=== PATIENT | female | born 1960 | race Caucasian/White ===

== ENCOUNTER 2016-06-19 09:40 | Outpatient (CLI) | payer MEDICAID | END 2016-06-19 23:59 | DX: M25.50 Pain in unspecified joint (principal); Z13.29 Encounter for screening for other suspected endocrine disorder ==

== ENCOUNTER 2016-10-08 11:44 | Outpatient (CLI) | payer MEDICAID ==
--- NOTE | 2016-10-08 12:58 | Mammography Report ---
DIGITAL DIAGNOSTIC BILATERAL MAMMOGRAM: 10/08/2016 CLINICAL HISTORY: Patient has right breast tenderness. Patient has no family history of breast canc er. Patient has had no breast surgeries. COMPARISON: None. TECHNIQUE: Craniocaudad and oblique lateral views of each breast were obtained with [facility] Full Fie ld digital mammography. A mediolateral view of the right breast was also done to compliment the stud y. FINDINGS: Breast parenchyma consists almost entirely of fat. No significant clusters of calcificati on are seen. No significant masses are noted. Present mammogram is negative. Patient does have right breast tenderness. Occasionally breast tende rness can indicate a significant abnormality even when a palpable mass is not present. Because of th is, recommend a right breast ultrasound to compliment the present study. Ultrasound can show abnorma lities that are not demonstrable on mammography. IMPRESSION: BIRADS CATEGORY 0 - INCOMPLETE. NEEDS ADDITIONAL IMAGING EVALUATION. RIGHT BREAST ULTR ASOUND FOR REASONS DISCUSSED ABOVE. PATIENT HAS ALREADY BEEN PLACED ON OUR SCHEDULE FOR RIGHT ROSELYN AST ULTRASOUND TO BE DONE 10/09/2016 AT 2:45 P.M. STANDARD QUALIFYING STATEMENTS 1. This examination was reviewed with the aid of Computer-Aided Detection (CAD). 2. A negative or benign imaging report should not delay biopsy if clinically suspicious findings are present. Consider surgical consultation if warranted. More than 5% of cancers are not identified by chucho caruso. 3. Dense breasts may obscure an underlying neoplasm. JOB #: [id number] EXT JOB #:
== END 2016-10-08 11:45 | disposition home or self-care (01) ==
LOC: DI 11:44
PROVIDERS: ATTEND Nurse Practitioner Family
DX: N64.4 Mastodynia (principal)
CPT/HCPCS: 77066

== ENCOUNTER 2016-10-09 14:18 | Outpatient (CLI) | payer MEDICAID ==
--- NOTE | 2016-10-10 09:42 | Ultrasound Report ---
RIGHT BREAST ULTRASOUND: 10/09/2016 CLINICAL HISTORY: A 55-year-old female with right breast pain and negative mammogram yesterday. Janeth jansen returns today for a right breast ultrasound for further evaluation. TECHNIQUE: Real-time scanning was performed with risk control field representative static images obtained. FINDINGS: Right breast ultrasound shows no significant abnormality in the area of patient's pain in the outer half of the right breast. IMPRESSION: NEGATIVE RIGHT BREAST ULTRASOUND. BIRADS CATEGORY 1 - NEGATIVE. RECOMMENDATIONS: Annual bilateral screening mammography. JOB #: [id number] EXT JOB #:[id number]
== END 2016-10-09 14:19 | disposition home or self-care (01) ==
LOC: DI 14:18
PROVIDERS: ATTEND Nurse Practitioner Family
DX: N64.4 Mastodynia (principal)
CPT/HCPCS: 76642

== ENCOUNTER 2017-02-10 15:19 | Outpatient (CLI) | payer MEDICAID ==
--- NOTE | 2017-02-11 10:31 | XRAY Report ---
TWO-VIEW BILATERAL SHOULDERS: 02/10/2017 CLINICAL INDICATION: Pain. FINDINGS: Frontal and scapular Y views of the bilateral shoulders demonstrate mild osteoarthritis of the glenohumeral joints. No radiopaque foreign body is seen in the soft tissues. IMPRESSION: MILD GLENOHUMERAL OSTEOARTHRITIS. JOB #: [id number] EXT JOB #:[id number]
== END 2017-02-10 15:20 | disposition home or self-care (01) ==
LOC: DI.S 15:19
PROVIDERS: ATTEND Nurse Practitioner Family
DX: M19.011 Primary osteoarthritis, right shoulder (principal); M19.012 Primary osteoarthritis, left shoulder

== ENCOUNTER 2018-05-14 10:12 | Outpatient (CLI) | payer MEDICAID ==
[2018-05-14 18:16] LABS: % IRON SATURATION 36 % (20-50); ALBUMIN/GLOBULIN RATIO 1.1 (1.0-2.2); ALKALINE PHOSPHATASE 43 IU/L (42-121); ALT ALANINE AMINOTRANSFERASE 19 IU/L (10-60); AST ASPARTATE AMINOTRANSFERASE 29 IU/L (10-42); BILIRUBIN,TOTAL 1.1 mg/dL (0.2-1.0); BUN - BLOOD UREA NITROGEN 15 mg/dL (6-20); CALCIUM 9.2 mg/dL (8.5-10.3); CARBON DIOXIDE - CO2 27 mmol/L (21-32); CHLORIDE 106 mmol/L (101-111); CHOL/HDL RATIO 2.1 (<4.4); CHOLESTEROL 213 mg/dL; CREATININE 0.6 mg/dL (0.4-1.0); GFR - MDRD 103 (>89); GLUCOSE 99 mg/dL (70-100); HDL CHOLESTEROL 100 mg/dL; IRON 130 ug/dL (28-170); LDL CHOLESTEROL,CALCULATED 100 mg/dL; SODIUM 144 mmol/L (135-145); TOTAL IRON BINDING CAPACITY 364 ug/dL (250-450); TOTAL PROTEIN 7.5 g/dL (6.7-8.2); TRANSFERRIN 260 mg/dL (192-382); VLDL CHOLESTEROL 13 mg/dL
[2018-05-14 18:24] LABS: THYROID STIMULATING HORMONE 1.59 uIU/mL (0.34-5.60)
[2018-05-14 18:25] LABS: BASOPHILS % (AUTO) 0.6 %; EOSINOPHILS # (AUTO) 0.1 10^3/uL (0.0-0.7); EOSINOPHILS % (AUTO) 1.3 %; HGB - HEMOGLOBIN 13.3 g/dL (12.0-16.0); LYMPHOCYTES # (AUTO) 1.5 10^3/uL (1.5-3.5); MEAN CORPUSCULAR HGB CONC 33.2 g/dL (32.0-36.0); MEAN CORPUSCULAR VOLUME 99.2 fL (81.0-99.0); MEAN PLATELET VOLUME 9.1 fL (7.9-10.8); MONOCYTES # (AUTO) 0.4 10^3/uL (0.0-1.0); MONOCYTES % (AUTO) 7.6 %; NEUTROPHILS # (AUTO) 3.1 10^3/uL (1.5-6.6); NEUTROPHILS % (AUTO) 61.5 %; PLT - PLATELET COUNT 223 10^3/uL (130-450); RED BLOOD COUNT 4.02 10^6/uL (4.20-5.40); RED CELL DISTRIBUTION WIDTH 14.1 % (12.0-15.0)
[2018-05-14 19:16] LABS: HB2 TOTAL 14.3 g/dL; HEMOGLOBIN A1C 0.48 g/dL; HEMOGLOBIN A1C % 5.2 % (4.6-6.2)
== END 2018-05-14 10:13 | disposition home or self-care (01) ==
LOC: LAB.F 10:12
PROVIDERS: ATTEND Nurse Practitioner Family
DX: R53.83 Other fatigue (principal); Z13.6 Encounter for screening for cardiovascular disorders; O24.419 Gestational diabetes mellitus in pregnancy, unspecified control
CPT/HCPCS: 36415; 80053; 80061; 82607; 83036; 83540; 83721; 84443; 84466; 85025

== ENCOUNTER 2020-03-31 07:00 | Outpatient (CLI) | payer MEDICAID | END 2020-03-31 23:59 | disposition home or self-care (01) | LOC: COV 07:00 | PROVIDERS: ATTEND Surgery | DX: Z01.812 Encounter for preprocedural laboratory examination (principal); K43.9 Ventral hernia without obstruction or gangrene; Z20.822 Contact with and (suspected) exposure to COVID-19 ==

== ENCOUNTER 2020-04-04 08:06 | Day surgery (SDC) | payer MEDICAID ==
[2020-04-04] MEDS ORDERED: LACTATED RINGERS 1,000 ML IV ONE ×3 (08:10→13:12)
[2020-04-04] MEDS ORDERED: ceFAZolin 2 GM/50 ML 2 GM/50 ML BAG IV ONE (08:35)
[2020-04-04] MEDS ORDERED: METOCLOPRAMIDE 10 MG/2 ML VIAL IVP PRN (09:01)
[2020-04-04] MEDS ORDERED: ePHEDrine 50 MG/ML VIAL IVP PRN (09:01)
[2020-04-04] MEDS ORDERED: MORPHINE 2 MG/ML CARPUJECT IVP PRN (09:01)
[2020-04-04] MEDS ORDERED: ATROPINE ABBOJECT 1 MG/10 ML SYRINGE IVP PRN (09:01)
[2020-04-04] MEDS ORDERED: NALOXONE 0.4 MG/ML VIAL IVP PRN (09:01)
[2020-04-04] MEDS ORDERED: ONDANSETRON 4 MG/2 ML VIAL IVP PRN (09:01)
[2020-04-04] MEDS ORDERED: fentaNYL 100 MCG/2 ML VIAL IVP PRN (09:01)
--- NOTE | 2020-04-04 09:02 | ANESTHESIA ---
Pre-Anesthesia VS, & Labs - Diagnosis right abdominal wall hernia - Procedure abdominal wall open hernia repair with mesh Vital Signs: Temp Pulse Resp BP Pulse Ox 36.9 C 81 18 153/87 H 96 04/04/20 08:10 04/04/20 08:10 04/04/20 08:10 04/04/20 08:10 04/04/20 08:10 Height: 5 ft 1 in Weight (kg): 53 kg Body Mass Index: 22.1 BMI Classification: Healthy weight - NPO Other (black coffee with sugar) Last Fluid Intake: 0700 - Is Patient ?: No Home Medications and Allergies Home Medications: Ambulatory Orders Gabapentin [Neurontin] 600 mg PO TID 03/27/20 Meloxicam [Mobic] 7.5 mg PO BID 03/27/20 hydrOXYzine HCL [Hydroxyzine HCl] 25 mg PO QID PRN 03/27/20 Gabapentin [Neurontin] 600 mg PO TID 03/27/20 Meloxicam [Mobic] 7.5 mg PO BID 03/27/20 hydrOXYzine HCL [Hydroxyzine HCl] 25 mg PO QID PRN 03/27/20 Allergies/Adverse Reactions: Allergies Allergy/AdvReac Type Severity Reaction Status Date / Time codeine AdvReac Nausea Verified 04/04/20 09:03 sertraline AdvReac Nausea Verified 04/04/20 09:03 Anes History & Medical History - Anesthetic History Anesthesia Complications: reports: Post-Operative Nausea/Vomiting Family history of Anesthesia Complications: Denies Family history of Malignant Hyperthermia: Denies - Medical History Cardiovascular: reports: None Pulmonary: reports: Other Gastrointestinal: reports: None Urinary: reports: None Musculoskeletal: reports: Osteoarthritis, Fibromyalgia Endocrine/Autoimmune: reports: Other Skin: reports: Other Smoking Status: Current every day smoker Psychosocial: reports: Cannabis - Surgical History Eyes Ears Nose Throat (EENT): Tonsil/Adenoidectomy Gynecologic: section Orthopedic: Arthroscopic surgery, Other Exam General: Alert, Oriented x3, Cooperative, No acute distress Dental: Dentures full Upper, Poor dentition (pt reports small abscess on right lower molar) Mouth Openin Fingerbreadth Neck Mobility: Normal Mallampati classification: I Respiratory: Lungs clear, Normal breath sounds, No respiratory distress, No accessory muscle use Cardiovascular: Regular rate, Normal S1, Normal S2, No murmurs Plan Anesthesia Type: General Consent for Procedure(s) Verified and Reviewed: Yes Code Status: Attempt Resuscitation ASA classification: 2-Mild systemic disease Is this case an emergency?: No
[2020-04-04] MEDS ORDERED: fentaNYL 100 MCG/2 ML VIAL ONE ×2 (09:47→12:11)
[2020-04-04] MEDS ORDERED: MIDAZOLAM 2 MG/2 ML VIAL ONE (09:47)
[2020-04-04] MEDS ORDERED: LIDOCAINE-MPF 2% 5 ML VIAL ONE (09:48)
[2020-04-04] MEDS ORDERED: PROPOFOL 200 MG/20 ML VIAL IVP ONE (09:48)
[2020-04-04] MEDS ORDERED: BUPIVACAINE 0.25% PF 30 ML VIAL ONE (09:50)
[2020-04-04] MEDS ORDERED: DEXAMETHASONE 4 MG/ML VIAL ONE (09:52)
[2020-04-04] MEDS ORDERED: ONDANSETRON 4 MG/2 ML VIAL ONE ×2 (09:52→12:45)
[2020-04-04] MEDS ORDERED: SCOPOLAMINE PATCH TOP SCH (10:00)
[2020-04-04] MEDS ORDERED: LACTATED RINGERS 1,000 ML IV SCH (10:00)
[2020-04-04] MEDS ORDERED: BUPIVACAINE 0.25% PF 30 ML VIAL SUBQ ONE ×2 (10:28)
[2020-04-04] MEDS ORDERED: ePHEDrine 50 MG/ML VIAL IVP ONE (11:14)
[2020-04-04] MEDS ORDERED: ACETAMINOPHEN 1,000 MG/100 ML 100 ML IV ONE (12:03)
[2020-04-04] MEDS ORDERED: oxyCODONE 5 MG TABLET PO PRN (12:29)
--- NOTE | 2020-04-04 12:29 | OPERATIVE REPORT ---
Operative Report - General Planned Procedure: right ventral hernia and umbilical hernia repair with mesh Pre-Op Diagnosis: right ventral hernia and umbilical hernia Procedure Performed: right ventral hernia and umbilical hernia repair with mesh Post Op Diagnosis: same - Procedure Note Primary Surgeon: lauri romero md Anesthesia Technique: General LMA, Local Estimated Blood Loss (mL): 0 Findings: as above Complications: none
[2020-04-04] MEDS: HYDROmorphone 0.5 MG/0.5 ML SYRINGE IVP PRN ×2 (12:38→12:44)
[2020-04-04] MEDS ORDERED: HYDROmorphone 1 MG/ML CARPUJECT ONE (12:45)
[2020-04-04 13:26] VITALS: BP 139/76
[2020-04-04] MEDS ORDERED: oxyCODONE 5 MG TABLET ONE (13:29)
--- NOTE | 2020-04-04 13:53 | ANESTHESIA POST OP EVALUATION ---
Anesthesia Post Eval - Post Anesthesia Eval Vitals: Last Vital Signs Temp 37 C 04/04/20 13:27 Pulse 82 04/04/20 13:27 Resp 14 04/04/20 13:27 BP 139/76 H 04/04/20 13:27 Pulse Ox 97 04/04/20 13:27 CV Function Including HR & BP: positive: Stable Pain Control: positive: Satisfactory Nausea & Vomiting: positive: Negative Mental Status: positive: Baseline Respiratory Status: Airway Patent Hydration Status: Satisfactory Anesthesia Complications: positive: None
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
== END 2020-04-04 08:07 | disposition home or self-care (01) ==
LOC: SDS 08:06
PROVIDERS: ATTEND Surgery
DX: K43.9 Ventral hernia without obstruction or gangrene (principal); K42.0 Umbilical hernia with obstruction, without gangrene; F17.200 Nicotine dependence, unspecified, uncomplicated
CPT/HCPCS: 49560; 49568; 49587; A9270; C1781; J0131; J0690; J1170; J3490; J7120

== ENCOUNTER 2020-04-20 16:21 | Outpatient (CLI) | payer MEDICAID ==
--- NOTE | 2020-04-20 17:07 | XRAY Report ---
PROCEDURE: Hip w/Pelvis 2-3V LT INDICATIONS: CHRONIC L HIP PAIN TECHNIQUE: AP pelvis with lateral view of the left hip. COMPARISON: None. FINDINGS: Bones: No fractures or dislocations. There is moderate to severe axial joint space narrowing in the hips bilaterally. Associated subchondral sclerosis and collar osteophytosis is demonstrated. Pelvic ring appears intact. No suspicious bony lesions. Soft tissues: The visualized bowel gas pattern is normal. No suspicious soft tissue calcifications. IMPRESSION: 1. 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 Reviewed by: Pradeep Montenegro MD on 04/20/2020 5:06 PM PST Approved by: Pradeep Montenegro MD on 04/20/2020 5:06 PM PST Station ID: [id number]
== END 2020-04-20 23:59 | disposition home or self-care (01) ==
LOC: DI.N 16:21
PROVIDERS: ATTEND Orthopaedic Surgery
DX: M16.0 Bilateral primary osteoarthritis of hip (principal)

== ENCOUNTER 2020-05-15 13:18 | Outpatient (CLI) | payer MEDICAID ==
[2020-05-15] MEDS ORDERED: BUFFERED LIDOCAINE 10 ML SYRINGE ONE (13:35)
[2020-05-15] MEDS ORDERED: ROPIVACAINE 0.5% PF 20 ML AMPULE ONE (13:35)
[2020-05-15] MEDS ORDERED: TRIAMCINOLONE 40 MG/ML VIAL ONE (13:36)
[2020-05-15] MEDS ORDERED: TRIAMCINOLONE 40 MG/ML VIAL IM ONE (14:32)
[2020-05-15] MEDS ORDERED: BUFFERED LIDOCAINE 10 ML SYRINGE IU ONE (14:34)
[2020-05-15] MEDS ORDERED: ROPIVACAINE 0.5% PF 20 ML AMPULE EP ONE ×2 (14:34)
[2020-05-15] MEDS ORDERED: iohexoL-240 10 ML VIAL IVP ONE (14:36)
--- NOTE | 2020-05-15 15:46 | XRAY Report ---
PROCEDURE: Inj/Aspiration Major Joint INDICATIONS: LEFT HIP PAIN CONTRAST: CONTRAST: omnipaque FLUORO TIME: FLUORO TIME: 53 sec and NUMBER IMAGES: 2 TECHNIQUE: The indications, alternatives, benefits, risks, and complications of the procedure were explained to the patient. Written informed consent was obtained and placed in the chart. The patient was placed in an appropriate position on the fluoroscopy table, and a site was chosen for percutaneous access un monse fluoroscopic guidance. Local anesthetic was administered using a 1% lidocaine solution. A hypod ermic or spinal needle was then used to access the symptomatic joint. Intra-articular location of th e needle tip was confirmed by injecting a small amount of contrast, followed by steroid administratio n. The needle was then withdrawn, and a bandage applied to the puncture site. FINDINGS: Joint injected: joint Medications injected: 1 mL of 40 mg/mL Kenalog and 3 cc 0.5% Ropivacaine mixture. Complications: None. IMPRESSION: Successful fluoroscopically guided administration of steroid and anaesthetic solution into the left h ip joint. Reviewed by: Chase Nicholson MD on 05/15/2020 3:45 PM PST Approved by: Chase Nicholson MD on 05/15/2020 3:45 PM PST Station ID: [id number]
== END 2020-05-15 13:19 | disposition home or self-care (01) ==
LOC: DI 13:18
PROVIDERS: ATTEND Orthopaedic Surgery
DX: M25.552 Pain in left hip (principal); G89.29 Other chronic pain
CPT/HCPCS: 20610; Q9966

== ENCOUNTER 2020-10-10 15:11 | Outpatient (CLI) | payer MEDICAID ==
--- NOTE | 2020-10-11 15:13 | Mammography Report ---
BILATERAL DIGITAL SCREENING MAMMOGRAM 3D/2D WITH EXAGGERATED CC: 10/10/2020 CLINICAL: Routine screening. Comparison is made to exam dated: 10/08/2016 mammogram - [facility]. There are sca ttered fibroglandular elements in both breasts. No significant masses, calcifications, or other findings are seen in either breast. There has been no significant interval change. IMPRESSION: NEGATIVE There is no mammographic evidence of malignancy. A 1 year screening mammogram is recommended. This exam was interpreted at Station ID: [id number]. NOTE: For mammograms, a report in lay terms will be sent to the patient. Approximately 15% of breast malignancies will not be visualized mammographically. In the management of a palpable breast mass, a negative mammogram must not discourage biopsy of a clinically suspicious lesion. Electronically Signed By: Pradeep Montenegro M.D. ddp/penrad:10/10/2020 15:52:42 ACR BI-RADS Category 1: Negative 3341F PARENCHYMAL PATTERN: (A) - The breast(s) demonstrate(s) scattered fibroglandular densities. BI-RADS CATEGORY: (1) - 1 RECOMMENDATION: (ANNUAL) - Recommend routine annual screening mammography. [id number] 1 year screening LATERALITY: (B)
== END 2020-10-10 15:12 | disposition home or self-care (01) ==
LOC: DI.S 15:11
DX: Z12.31 Encounter for screening mammogram for malignant neoplasm of breast (principal)

== ENCOUNTER 2022-01-14 14:02 | Outpatient (CLI) | payer MEDICAID ==
--- NOTE | 2022-01-16 09:32 | Mammography Report ---
BILATERAL DIGITAL SCREENING MAMMOGRAM 3D/2D: 01/14/2022 CLINICAL: Routine screening. Comparison is made to exams dated: 10/10/2020 mammogram and 10/08/2016 mammogram - [facility]. There are scattered areas of fibroglandular density in both breasts (category b / 25%-50% glandular t issue). No significant masses, calcifications, or other findings are seen in either breast. There has been no significant interval change. IMPRESSION: NEGATIVE There is no mammographic evidence of malignancy. A 1 year screening mammogram is recommended. Based on the Tyrer Cuzick model (a risk assessment model) the patients lifetime risk is 5.5% and her 10 year risk is 2.4%. According to the ACR, ACS, and NCCN guidelines, an annual breast MRI exam yanick g with mammogram is recommended if the patients lifetime risk is 20% or greater. This exam was interpreted at Station ID: [id number]. NOTE: For mammograms, a report in lay terms will be sent to the patient. Approximately 15% of breast malignancies will not be visualized mammographically. In the management of a palpable breast mass, a negative mammogram must not discourage biopsy of a clinically suspicious lesion. Electronically Signed By: Wayne lennon/penrad:01/14/2022 16:44:36 ACR BI-RADS Category 1: Negative 3341F PARENCHYMAL PATTERN: (A) - The breast(s) demonstrate(s) scattered fibroglandular densities. BI-RADS CATEGORY: (1) - 1 RECOMMENDATION: (ANNUAL) - Recommend routine annual screening mammography. [id number] 1 year screening LATERALITY: (B)
== END 2022-01-14 14:03 | disposition home or self-care (01) ==
LOC: DI.S 14:02
PROVIDERS: ATTEND Nurse Practitioner Family
DX: Z12.31 Encounter for screening mammogram for malignant neoplasm of breast (principal)

== ENCOUNTER 2022-01-14 14:03 | Outpatient (CLI) | payer MEDICAID ==
--- NOTE | 2022-01-14 14:57 | XRAY Report ---
PROCEDURE: Knee 2 View RT INDICATIONS: RIGHT KNEE PAIN TECHNIQUE: 2 views of the right knee(s) were acquired. COMPARISON: None. FINDINGS: Bones: Diffuse demineralization. No visible fractures. Normal bone alignment. There is mild medial c ompartment joint space loss. Soft tissues: No joint effusion. No suspicious soft tissue calcifications. IMPRESSION: 1. Mild medial compartment joint space loss without significant osteoarthritic change. 2. Diffuse demineralization. Reviewed by: Erica Avina MD on 01/14/2022 1:56 PM AKDT Approved by: Erica Avina MD on 01/14/2022 1:56 PM AKDT Station ID: [id number]
== END 2022-01-14 14:04 | disposition home or self-care (01) ==
LOC: DI.S 14:03
PROVIDERS: ATTEND Nurse Practitioner Family
DX: M81.0 Age-related osteoporosis without current pathological fracture (principal)

== ENCOUNTER 2022-01-17 11:02 | Outpatient (CLI) | payer MEDICAID ==
--- NOTE | 2022-01-17 12:45 | XRAY Report ---
PROCEDURE: Hip w/Pelvis 2-3V RT INDICATIONS: RIGHT HIP PAIN, RIGHT ANKLE PAIN TECHNIQUE: AP pelvis with lateral view(s) of the right hip(s). COMPARISON: 04/20/2020 FINDINGS: Bones: Diffuse demineralization. There is moderate to marked bilateral medial joint space loss, right worse than left and moderate right hip periarticular spurring. No visible acute fracture. Healed lef t inferior pubic ramus fracture. Soft tissues: The visualized bowel gas pattern is normal. No suspicious soft tissue calcifications. IMPRESSION: 1. 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 2. Healed remote left inferior pubic ramus fracture. 3. Minimal change compared to the prior study. Reviewed by: Erica Avina MD on 01/17/2022 11:44 AM RODERICK Approved by: Erica Avina MD on 01/17/2022 11:44 AM RODERCIK Station ID: [id number]
--- NOTE | 2022-01-17 14:10 | XRAY Report ---
PROCEDURE: Ankle 2 View RT INDICATIONS: RIGHT HIP PAIN, RIGHT ANKLE PAIN TECHNIQUE: 2 views of the ankle were acquired. COMPARISON: None FINDINGS: Diffuse osteopenia about the ankle and hindfoot. Malleable plate and screw fixation of the talus and calcaneus with some probable developing ankylosis of the talocalcaneal joint. There is some lucency w ithin the mostly obliterated joint space however the joint appears mostly fused at this time. Moderat e secondary osteophytic change of the tibiotalar joint with flattening of the articular surfaces, jose nt space narrowing, and marginal osteophytosis. There is also moderate talonavicular osteophytic mahmood ge. IMPRESSION: Postsurgical changes of the tibiocalcaneal lateral plate and screw ankylosis. 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 Moderate tibiotalar and talonavicular osteoarthritis. Reviewed by: Manuel Eng MD on 01/17/2022 2:08 PM PDT Approved by: Manuel Eng MD on 01/17/2022 2:08 PM PDT Station ID: [id number]
== END 2022-01-17 11:03 | disposition home or self-care (01) ==
LOC: DI.S 11:02
PROVIDERS: ATTEND Nurse Practitioner Family
DX: M16.0 Bilateral primary osteoarthritis of hip (principal); M24.7 Protrusio acetabuli; M19.071 Primary osteoarthritis, right ankle and foot; Z87.81 Personal history of (healed) traumatic fracture

== ENCOUNTER 2022-01-17 11:19 | Outpatient (CLI) | payer MEDICAID | END 2022-01-17 11:20 | disposition home or self-care (01) | LOC: LAB.S 11:19 | PROVIDERS: ATTEND Nurse Practitioner Family | DX: Z13.1 Encounter for screening for diabetes mellitus (principal); Z13.220 Encounter for screening for lipoid disorders; Z13.29 Encounter for screening for other suspected endocrine disorder; Z11.59 Encounter for screening for other viral diseases | CPT/HCPCS: 36415; 80053; 80061; 83036; 83721; 84439; 84443; 86803 ==

== ENCOUNTER 2022-01-18 09:50 | Outpatient (CLI) | payer MEDICAID ==
[2022-01-18 15:23] LABS: ALBUMIN 4.1 g/dL (3.2-5.5); ALBUMIN/GLOBULIN RATIO 1.6 (1.0-2.2); ALKALINE PHOSPHATASE 52 IU/L (42-121); ALT ALANINE AMINOTRANSFERASE 21 IU/L (10-60); AST ASPARTATE AMINOTRANSFERASE 33 IU/L (10-42); BILIRUBIN,TOTAL 0.8 mg/dL (0.2-1.0); BUN - BLOOD UREA NITROGEN 20 mg/dL (6-20); CALCIUM 9.8 mg/dL (8.5-10.3); CARBON DIOXIDE - CO2 28 mmol/L (21-32); CHLORIDE 103 mmol/L (101-111); CHOL/HDL RATIO 2.8 (<4.4); CHOLESTEROL 202 mg/dL; CREATININE 0.7 mg/dL (0.4-1.0); GFR - MDRD 85 (>89); GLUCOSE 104 mg/dL (70-100); HDL CHOLESTEROL 72 mg/dL; LDL CHOLESTEROL,CALCULATED 104 mg/dL; LDL/HDL RATIO 1.4 (<4.4); POTASSIUM 4.7 mmol/L (3.5-5.0); SODIUM 140 mmol/L (135-145); TOTAL PROTEIN 6.7 g/dL (6.7-8.2); TRIGLYCERIDES 130 mg/dL; VLDL CHOLESTEROL 26 mg/dL
[2022-01-18 15:26] LABS: THYROID STIMULATING HORMONE 2.19 uIU/mL (0.34-5.60)
[2022-01-18 15:28] LABS: FREE T4 (FREE THYROXINE) 0.61 ng/dL (0.58-1.64)
[2022-01-18 20:45] LABS: ESTIMATED AVERAGE GLUCOSE 114 mg/dL (70-100); HEMOGLOBIN A1c% 5.6 % (4.27-6.07)
[2022-01-19 03:09] LABS: HCV AB <0.1 s/co ratio (0.0-0.9)
== END 2022-01-18 09:51 | disposition home or self-care (01) ==
LOC: LAB.S 09:50
PROVIDERS: ATTEND Nurse Practitioner Family
DX: Z13.1 Encounter for screening for diabetes mellitus (principal); Z13.220 Encounter for screening for lipoid disorders; Z13.29 Encounter for screening for other suspected endocrine disorder; Z11.59 Encounter for screening for other viral diseases
CPT/HCPCS: 36415; 80053; 80061; 83036; 83721; 84439; 84443; 86803

== ENCOUNTER 2023-11-28 13:52 | Outpatient (CLI) | payer MEDICAID ==
[2023-11-28 20:03] LABS: HCT - HEMATOCRIT 41.8 % (37.0-47.0); HGB - HEMOGLOBIN 12.9 g/dL (12.0-16.0); MEAN CORPUSCULAR HEMOGLOBIN 29.5 pg (27.0-31.0); MEAN CORPUSCULAR HGB CONC 30.9 g/dL (32.0-36.0); MEAN CORPUSCULAR VOLUME 95.4 fL (81.0-99.0); MEAN PLATELET VOLUME 10.3 fL (7.9-10.8); RED BLOOD COUNT 4.38 10^6/uL (4.20-5.40); RED CELL DISTRIBUTION WIDTH 13.6 % (12.0-15.0); WHITE BLOOD COUNT 8.6 x10^3/uL (4.8-10.8)
[2023-11-28 20:23] LABS: ALBUMIN 4.5 g/dL (3.2-5.5); ALBUMIN/GLOBULIN RATIO 1.7 (1.0-2.2); ALKALINE PHOSPHATASE 49 IU/L (42-121); ALT ALANINE AMINOTRANSFERASE 18 IU/L (10-60); AST ASPARTATE AMINOTRANSFERASE 30 IU/L (10-42); BILIRUBIN,TOTAL 0.6 mg/dL (0.2-1.0); BUN - BLOOD UREA NITROGEN 11 mg/dL (6-20); CALCIUM 9.6 mg/dL (8.5-10.3); CARBON DIOXIDE - CO2 28 mmol/L (21-32); CHLORIDE 103 mmol/L (101-111); CHOL/HDL RATIO 3.4 (<4.4); CHOLESTEROL 259 mg/dL; CREATININE 0.7 mg/dL (0.6-1.3); GFR - MDRD 84 (>89); GLUCOSE 102 mg/dL (74-104); HDL CHOLESTEROL 77 mg/dL; LDL CHOLESTEROL,CALCULATED 161 mg/dL; LDL/HDL RATIO 2.1 (<4.4); POTASSIUM 4.1 mmol/L (3.5-4.5); SODIUM 140 mmol/L (135-145); TOTAL PROTEIN 7.2 g/dL (6.4-8.9); TRIGLYCERIDES 106 mg/dL; VLDL CHOLESTEROL 21 mg/dL
== END 2023-11-28 13:53 | disposition home or self-care (01) ==
LOC: LAB.S 13:52
PROVIDERS: ATTEND Nurse Practitioner Family
DX: Z51.81 Encounter for therapeutic drug level monitoring (principal); G89.4 Chronic pain syndrome; E78.2 Mixed hyperlipidemia
CPT/HCPCS: 36415; 80053; 80061; 83721; 85027